=== PATIENT | male | born 1960 ===

== ENCOUNTER 2017-03-18 10:09 | Emergency (ER) | payer OTHER ==
[2017-03-18 10:27] VITALS: BP 124/76; PULSE 61; RESP 19; TEMP 97; O2SAT 100
--- NOTE | 2017-03-18 11:33 | ED PDOC ---
HPI: CCC, URI, Sore Throat Time Seen by Provider: 03/18/17 10:28 Chief Complaint (Nursing): ENT Problem Chief Complaint (Provider): Sore throat, cough in the morning, watery eyes x 2 weeks History Per: Patient History/Exam Limitations: no limitations Onset/Duration Of Symptoms: Days Current Symptoms Are (Timing): Still Present Location Of Pain: Throat Sick Contacts (Context): None Associated Symptoms: Sore Throat, Cough (Only in the morning). denies: Fever, Chills Past Medical History Reviewed: Historical Data, Nursing Documentation, Vital Signs Vital Signs: Last Vital Signs Temp 97.0 F L 03/18/17 10:23 Pulse 61 03/18/17 10:23 Resp 19 03/18/17 10:23 BP 124/76 03/18/17 10:23 Pulse Ox 100 03/18/17 11:41 - Medical History PMH: Denies: No Chronic Diseases - Surgical History Surgical History: No Surg Hx - Family History Family History: States: No Known Family Hx - Living Arrangements Living Arrangements: With Family - Social History Current smoker - smoking cessation education provided: No - Home Medications Home Medications: Ambulatory Orders Medication Instructions Recorded Fexofenadine/Pseudoephedrine 1 each PO BID PRN #12 tab.er.12h 03/18/17 [Laura-D 12 Hour Tablet] - Allergies Allergies/Adverse Reactions: Allergies Allergy/AdvReac Type Severity Reaction Status Date / Time No Known Allergies Allergy Verified 03/18/17 10:23 Review of Systems ROS Statement: Except As Marked, All Systems Reviewed And Found Negative Constitutional: Negative for: Fever, Chills, Malaise ENT: Positive for: Throat Pain Respiratory: Positive for: Cough Physical Exam - Reviewed Nursing Documentation Reviewed: Yes Vital Signs Reviewed: Yes - Physical Exam Appears: Positive for: Well, Non-toxic, No Acute Distress Head Exam: Positive for: ATRAUMATIC, NORMAL INSPECTION, NORMOCEPHALIC Skin: Positive for: Normal Color, Warm, DRY Eye Exam: Positive for: Normal appearance ENT: Positive for: Normal ENT Inspection Neck: Positive for: Normal, Painless ROM Cardiovascular/Chest: Positive for: Regular Rate, Rhythm Respiratory: Positive for: CNT, Normal Breath Sounds Back: Positive for: Normal Inspection Extremity: Positive for: Normal ROM Neurologic/Psych: Positive for: Alert, Oriented - ECG O2 Sat by Pulse Oximetry: 100 Disposition - Clinical Impression Clinical Impression: Viral illness - Patient ED Disposition Is Patient to be Admitted: No Counseled Patient/Family Regarding: Diagnosis, Need For Followup, Rx Given - Disposition Disposition: Routine/Home Disposition Time: 12:06 Condition: GOOD Prescriptions: Fexofenadine/Pseudoephedrine [Laura-D 12 Hour Tablet] 1 each PO BID PRN #12 tab.er.12h PRN Reason: Cough And Congestion Instructions: Viral Syndrome (ED) Forms: [employer] (Persian)
== END 2017-03-18 12:11 | disposition home or self-care (01) ==
LOC: H.ER 10:09
DX: B34.9 Viral infection, unspecified (principal)
CPT/HCPCS: 87070; 87430; 96372; 99281; J1100